=== PATIENT | female | born 1980 | race Caucasian/White ===

== ENCOUNTER → 2024-07-18 | Outpatient (CLI) | payer OTHER ==
--- NOTE | 2024-07-18 15:20 | MM ---
Reason for Exam: Additional evaluation requested from prior study. Risk Values: Judith 5 year model risk: 0.4%. NCI Lifetime model risk: 6.6%. Tissue Density: Left: There are scattered areas of fibroglandular density. Findings: Analyzed By CAD. No new suspicious masses, calcifications or distortions. Overall Assessment: Incomplete: need additional imaging evaluation, BI-RAD 0 Management: Diagnostic Breast Ultrasound of the left breast. Results were given to the patient verbally at the time of exam. Patient should continue monthly self-breast exams. A clinical breast exam by your physician is recommended on an annual basis. This exam should not preclude additional follow-up of suspicious palpable abnormalities. Note on Judith scores and lifetime risk: 1. A Judith score greater than 3% is considered moderate risk. If this is the case, consider specialist referral to assess eligibility for a risk reducing agent. 2. If overall lifetime risk for the development of breast cancer is 20% or higher, the patient may qualify for future screening with alternating mammogram and breast MRI. [facility], , 07/18/2024 3:17 PM. Electronically signed and approved by: Scott Daniels DO
--- NOTE | 2024-07-18 15:33 | USB ---
Reason for Exam: Additional evaluation requested from abnormal screening. Risk Values: Judith 5 year model risk: 0.4%. NCI Lifetime model risk: 6.6%. Technique: Method: Targeted. Doppler: Color. Patient Position: Supine. Findings: The axilla of the left breast was scanned. Technique utilized:US breast workup limited LT Image; Ultrasound imaging of: Area of concern/axilla. Normal appearing lymph nodes in the left axilla. No evidence for organizing fluid collection or mass. Overall Assessment: Benign, BI-RAD 2 Management: Screening Mammogram of both breasts in 1 year. A clinical breast exam by your physician is recommended on an annual basis and results should be correlated with mammographic findings. This exam should not preclude additional follow-up of suspicious palpable abnormalities. Results were given to the patient verbally at the time of exam. [facility], , 07/18/2024 3:30 PM. Electronically signed and approved by: Scott Daniels DO
== END | disposition home or self-care (01) ==
LOC: RADMAMWWP 14:54 → MERGE 15:00
PROVIDERS: ATTEND Family Medicine
DX: R92.8 Other abnormal and inconclusive findings on diagnostic imaging of breast (principal); R92.323 Mammographic fibroglandular density, bilateral breasts
CPT/HCPCS: 77061; 77065